=== PATIENT | female | born 1995 | race Caucasian/White ===

== ENCOUNTER 2017-01-29 03:30 | Inpatient (IN) | payer OTHER ==
[2017-01-29 04:10] LABS: HGB 12.4 g/dl (12.5-16.0); MCH 32.3 pg (25.0-31.0); MCHC 34.4 g/dL (32.0-36.0); MCV 93.8 fL (78.0-100.0); MPV 11.7 fL (6.0-9.5); RBC 3.84 M/uL (4.20-5.40); RDW 12.9 % (11.5-14.0); WBC 8.7 K/uL (4.0-10.5)
[2017-01-29 18:04] LABS: HCT 33.6 % (37.0-47.0); HGB 11.4 g/dl (12.5-16.0); MCH 28.9 pg (25.0-31.0); MCHC 33.9 g/dL (32.0-36.0); MCV 85.1 fL (78.0-100.0); MPV 11.7 fL (6.0-9.5); RBC 3.95 M/uL (4.20-5.40); RDW 13.4 % (11.5-14.0)
[2017-01-29 18:07] LABS: WBC 16.8 K/uL (4.0-10.5)
== END 2017-01-31 13:30 | disposition home or self-care (01) | DRG 775 ==
LOC: FOD 03:30 → FOB 03:30 → FOD 04:02 → FOB 04:03
PROVIDERS: ADMIT Obstetrics & Gynecology
PROC: 10E0XZZ Delivery of Products of Conception, External Approach (ICD-10-PCS; principal; 2017-01-29)
PROC: 4A1HX4Z Monitoring of Products of Conception, Cardiac Electrical Activity, External Approach (ICD-10-PCS; 2017-01-29)
PROC: 0HQ9XZZ Repair Perineum Skin, External Approach (ICD-10-PCS; 2017-01-29)
DX: O70.0 First degree perineal laceration during delivery (principal); F31.9 Bipolar disorder, unspecified; O99.824 Streptococcus B carrier state complicating childbirth; F41.8 Other specified anxiety disorders; Z3A.38 38 weeks gestation of pregnancy; Z37.0 Single live birth; O99.02 Anemia complicating childbirth; F41.9 Anxiety disorder, unspecified
CPT/HCPCS: 36415; J2540